=== PATIENT | male | born 1950 | race Caucasian/White ===

== ENCOUNTER 2022-09-12 04:46 | Inpatient (IN) | payer MEDICARE, OTHER ==
[~2022-09-12] VITALS: Ht 180.3 cm; Wt 118.0 kg
[2022-09-12] VITALS (38 sets, daily range): BP systolic 98–155; BP diastolic 54–76; O2SAT 93–96
[2022-09-12] MEDS ORDERED: NS 1,000 ML IV ONE ×3 (05:00→05:20)
[2022-09-12 05:12] LABS: BASO % 0.2 % (0.0-1.0); EOS % 0.1 % (0.0-3.0); HEMATOCRIT 31.3 % (42.0-52.0); HEMOGLOBIN 9.9 g/dl (13.5-17.5); LYMPH # 0.6 10^3/uL (1.5-5.0); LYMPH % 4.7 % (24.0-44.0); MEAN CORPUSCULAR HEMOGLOBIN 26.1 pg (27.0-33.0); MEAN CORPUSCULAR HGB CONC 31.6 g/dl (32.0-36.5); MEAN CORPUSCULAR VOLUME 82.6 fl (80.0-96.0); MONO # 1.2 10^3/uL (0.0-0.8); MONO % 9.2 % (2.0-8.0); NEUTROPHILS # 10.8 10^3/uL (1.5-8.5); PLATELET COUNT, AUTOMATED 177 10^3/uL (150-450); RED BLOOD COUNT 3.79 10^6/uL (4.30-6.10); WHITE BLOOD COUNT 12.7 10^3/uL (4.0-10.0)
[2022-09-12] MEDS ORDERED: NOREPINEPHRINE 4MG IN D5 250ML 4 MG in IV 1 EA IV SCH ×4 (05:20→08:40)
[2022-09-12 05:33] LABS: INR 1.07; PROTHROMBIN TIME 14.1 SECONDS (12.5-14.5)
[2022-09-12 05:34] LABS: PARTIAL THROMBOPLASTIN TIME 38.4 SECONDS (24.8-34.2)
[2022-09-12 05:37] LABS: ETHYL ALCOHOL (ETHANOL) 0.008 % (0.000-0.010)
[2022-09-12 05:39] LABS: BLOOD UREA NITROGEN 62 MG/DL (9-23); CARBON DIOXIDE LEVEL 24 MMOL/L (20-31); CHLORIDE LEVEL 98 MMOL/L (98-107); CK-MB VALUE MASS < 1.0 NG/ML (<3.6); CPK CREATINE PHOSPHOKINASE 23 U/L (46-171); CREATININE FOR GFR 2.98 MG/DL (0.70-1.30); GLOMERULAR FILTRATION RATE 22.1 (>42); GLUCOSE, FASTING 126 MG/DL (74-106); MB/CK RELATIVE INDEX 4.34 (< OR =4); POTASSIUM SERUM 4.7 MMOL/L (3.5-5.1); SODIUM LEVEL 132 MMOL/L (136-145)
[2022-09-12 05:41] LABS: THYROID STIMULATING HORMONE 2.152 uIU/ML (0.55-4.78)
[2022-09-12] MEDS ORDERED: cefTRIAXone SOD 2 GM in D5W MINI-BAG PLUS 50 ML IV ONE (06:25)
[2022-09-12] MEDS ORDERED: AZITHROMYCIN INJ 500 MG, VIAL MATE ADAPTER 1 EACH in NS 250 ML IV ONE (06:25)
[2022-09-12 07:30] LABS: CK-MB VALUE MASS < 1.0 NG/ML (<3.6)
[2022-09-12 07:34] LABS: CPK CREATINE PHOSPHOKINASE 29 U/L (46-171); MB/CK RELATIVE INDEX 3.44 (< OR =4)
[2022-09-12] MEDS ORDERED: GLUCAGON INJ 1MG VIAL SC PRN (08:45)
[2022-09-12] MEDS ORDERED: GLUCOSE 4GM CHEW TABLET PO PRN (08:45)
[2022-09-12] MEDS ORDERED: DEXTROSE 50% 50ML SYRINGE IV PRN (08:45)
[2022-09-12] MEDS ORDERED: FAMOTIDINE 20 MG TAB PO SCH (09:00)
[2022-09-12] MEDS ORDERED: PANTOPRAZOLE 40MG TAB (PROTONIX) PO SCH (09:00)
[2022-09-12] MEDS: IPRATROPIUM 0.5MG/ALBUTEROL 2.5MG INH SOL UD 3ML (DUONEB) NEB SCH ×4 (09:07→19:12)
[2022-09-12 09:10] LABS: ABG HCO3 18.5 MMOL/L (22.0-26.0); ABG O2 SATURATION 97.7 % (95.0-99.0); ABG PARTIAL PRESSURE CO2 33.1 mmHg (35.0-45.0); ABG PARTIAL PRESSURE O2 115.9 mmHg (75.0-100.0); ABG STANDARD HCO3 19.5 MMOL/L. (22.0-26.0); ABG TOTAL CO2 19.6 MMOL/L (23.0-31.0); ABG pH (ARTERIAL) 7.366 UNITS (7.350-7.450)
[2022-09-12] MEDS: NS 1,000 ML IV SCH ×2 (09:10→16:34)
[2022-09-12] MEDS ORDERED: ATOR80TA59 PO (09:46)
[2022-09-12] MEDS ORDERED: DULO1CAP5 PO (09:46)
[2022-09-12] MEDS ORDERED: OMEP-173 PO (09:46)
[2022-09-12] MEDS ORDERED: CARV6.25 PO (09:46)
[2022-09-12] MEDS ORDERED: LISI10TA24 PO (09:46)
[2022-09-12] MEDS ORDERED: CLOP75TA2 PO (09:46)
[2022-09-12] MEDS ORDERED: TIZA10TA PO (09:46)
[2022-09-12] MEDS ORDERED: B-12100010 PO (09:46)
[2022-09-12] MEDS ORDERED: VITA100093 PO (09:46)
[2022-09-12] MEDS ORDERED: BASA100I SC (09:46)
[2022-09-12] MEDS ORDERED: MAGN400T2 PO (09:46)
[2022-09-12] MEDS ORDERED: FURO40TA2 PO (09:46)
[2022-09-12] MEDS ORDERED: EZET10TA21 PO (09:46)
[2022-09-12] MEDS ORDERED: GABA-282 PO (09:46)
[2022-09-12] MEDS ORDERED: TAMS1CAP17 PO (09:46)
[2022-09-12] MEDS ORDERED: METF500T13 PO (09:46)
[2022-09-12] MEDS ORDERED: ALLO100T PO (09:46)
[2022-09-12] MEDS ORDERED: FINA5TAB2 PO (09:46)
[2022-09-12] MEDS ORDERED: HOME MED LIST COMPLETE! XX SCH (09:50)
[2022-09-12] MEDS ORDERED: methylPREDNISolone 40MG 1ML VIAL IV ONE (11:00)
[2022-09-12] MEDS ORDERED: INSULIN LISPRO (NovoLOG) PER UNIT SC SCH (12:00)
[2022-09-12] MEDS: CLOPIDOGREL 75 MG TAB PO SCH (12:07)
[2022-09-12] MEDS: FINASTERIDE 5MG TAB PO SCH (12:07)
[2022-09-12] MEDS: NOREPINEPHRINE 4MG IN D5 250ML 4 MG in IV 1 EA IV SCH ×4 (12:10→19:00)
[2022-09-12 13:32] LABS: ALBUMIN 2.8 G/DL (3.2-5.2); BILIRUBIN,DIRECT 0.4 MG/DL (<0.4); BILIRUBIN,TOTAL 0.8 MG/DL (0.3-1.2); TOTAL PROTEIN 5.5 G/DL (5.7-8.2)
[2022-09-12] MEDS ORDERED: HEPARIN SOD (PORCINE) 5000UNITS/ML 1ML VIAL/SYRINGE SC SCH (14:00)
[2022-09-12] MEDS: HEPARIN SOD (PORCINE) 5000UNITS/ML 1ML VIAL/SYRINGE SC SCH ×2 (16:33→22:20)
[2022-09-12] MEDS: INSULIN LISPRO (NovoLOG) PER UNIT SC SCH ×2 (17:40→20:40)
[2022-09-12] MEDS: ATORVASTATIN 20 MG TAB PO SCH (20:40)
[2022-09-12] MEDS: TAMSULOSIN 0.4 MG CAP PO SCH (20:40)
[2022-09-12] MEDS: GABAPENTIN 300 MG CAP PO SCH (20:40)
[2022-09-12] MEDS: EZETIMIBE 10MG TABLET (ZETIA) PO SCH (20:40)
[2022-09-12] MEDS ORDERED: APIXABAN 2.5 MG TAB (ELIQUIS) PO SCH (21:00)
[2022-09-12] MEDS ORDERED: CALCIUM CARBONATE 500 MG CHEW U/D PO ONE (23:00)
[2022-09-13] VITALS (16 sets, daily range): BP systolic 142–178; BP diastolic 68–146; O2SAT 96–97
[2022-09-13 06:11] LABS: PERCENT SATURATION 3.2 % (19.7-50.0)
[2022-09-13] MEDS: HEPARIN SOD (PORCINE) 5000UNITS/ML 1ML VIAL/SYRINGE SC SCH (06:29)
[2022-09-13] MEDS ORDERED: HEPARIN SOD (PORCINE) 5000UNITS/ML 1ML VIAL/SYRINGE IV PRN (06:50)
[2022-09-13] MEDS ORDERED: AZITHROMYCIN INJ 500 MG, VIAL MATE ADAPTER 1 EACH in NS 250 ML IV SCH (07:00)
[2022-09-13 07:13] LABS: ALBUMIN 2.6 G/DL (3.2-5.2); BILIRUBIN,TOTAL 0.4 MG/DL (0.3-1.2); CALCIUM LEVEL 7.7 MG/DL (8.3-10.6); CREATININE FOR GFR 1.84 MG/DL (0.70-1.30); GLOMERULAR FILTRATION RATE 38.6 (>42); POTASSIUM SERUM 4.6 MMOL/L (3.5-5.1); TOTAL PROTEIN 5.4 G/DL (5.7-8.2)
[2022-09-13 07:13] LABS: HEMATOCRIT 33.9 % (42.0-52.0); HEMOGLOBIN 10.3 g/dl (13.5-17.5); MEAN CORPUSCULAR HEMOGLOBIN 25.8 pg (27.0-33.0); MEAN CORPUSCULAR HGB CONC 30.4 g/dl (32.0-36.5); MEAN CORPUSCULAR VOLUME 84.8 fl (80.0-96.0); PLATELET COUNT, AUTOMATED 173 10^3/uL (150-450); WHITE BLOOD COUNT 8.7 10^3/uL (4.0-10.0)
[2022-09-13 07:27] LABS: INR 0.98; PROTHROMBIN TIME 13.2 SECONDS (12.5-14.5)
[2022-09-13] MEDS: cefTRIAXone SOD 2 GM in D5W MINI-BAG PLUS 50 ML IV SCH (07:53)
[2022-09-13] MEDS: INSULIN LISPRO (NovoLOG) PER UNIT SC SCH ×4 (07:54→20:18)
[2022-09-13] MEDS: HEPARIN DRIP 25,000 UNITS in IV 1 EA IV SCH (08:01)
[2022-09-13] MEDS: CLOPIDOGREL 75 MG TAB PO SCH (08:02)
[2022-09-13] MEDS: FINASTERIDE 5MG TAB PO SCH (08:02)
[2022-09-13] MEDS: IPRATROPIUM 0.5MG/ALBUTEROL 2.5MG INH SOL UD 3ML (DUONEB) NEB SCH ×4 (08:19→19:15)
[2022-09-13] MEDS: DOCUSATE SODIUM 100MG CAPSULE PO SCH ×3 (09:00→20:07)
[2022-09-13] MEDS ORDERED: MIRALAX *UNIT DOSE* 17GM PACKET PO PRN (09:50)
[2022-09-13] MEDS: PANTOPRAZOLE 40MG VIAL IV SCH (12:48)
[2022-09-13] MEDS: ATORVASTATIN 20 MG TAB PO SCH (20:07)
[2022-09-13] MEDS: GABAPENTIN 300 MG CAP PO SCH (20:07)
[2022-09-13] MEDS: EZETIMIBE 10MG TABLET (ZETIA) PO SCH (20:07)
[2022-09-13] MEDS: TAMSULOSIN 0.4 MG CAP PO SCH (20:07)
[2022-09-13] MEDS ORDERED: CARVedilol 6.25 MG TAB PO SCH (21:00)
[2022-09-13] MEDS ORDERED: ONDANSETRON 4MG 2ML VIAL IV PRN (23:55)
[2022-09-14] VITALS (12 sets, daily range): BP systolic 110–188; BP diastolic 56–109
[2022-09-14] MEDS: CARVedilol 12.5 MG TAB PO SCH ×3 (00:07→13:17)
[2022-09-14] MEDS ORDERED: FUROSEMIDE 40MG/4ML VIAL IV ONE (01:00)
[2022-09-14] MEDS: HEPARIN DRIP 25,000 UNITS in IV 1 EA IV SCH (01:24)
[2022-09-14 04:08] LABS: CALCIUM LEVEL 7.5 MG/DL (8.3-10.6); CREATININE FOR GFR 1.71 MG/DL (0.70-1.30); MAGNESIUM LEVEL 1.8 MG/DL (1.8-2.4); POTASSIUM SERUM 5.1 MMOL/L (3.5-5.1)
[2022-09-14] MEDS: IPRATROPIUM 0.5MG/ALBUTEROL 2.5MG INH SOL UD 3ML (DUONEB) NEB SCH ×3 (07:07→15:07)
[2022-09-14] MEDS: CLOPIDOGREL 75 MG TAB PO SCH (08:46)
[2022-09-14] MEDS: FINASTERIDE 5MG TAB PO SCH (08:46)
[2022-09-14] MEDS: INSULIN LISPRO (NovoLOG) PER UNIT SC SCH ×2 (08:48→13:16)
[2022-09-14] MEDS: cefTRIAXone SOD 2 GM in D5W MINI-BAG PLUS 50 ML IV SCH (08:48)
[2022-09-14] MEDS: DOCUSATE SODIUM 100MG CAPSULE PO SCH (08:51)
[2022-09-14] MEDS ORDERED: AZITHROMYCIN 250MG TABLET PO SCH (09:00)
[2022-09-14] MEDS: PANTOPRAZOLE 40MG VIAL IV SCH (13:16)
[2022-09-16 15:08] LABS: BODY FLUID CULTURE Not indicated. (.); LEGIONELLA ANTIGEN URINE Positive (Negative); ORGANISM ID Not indicated. (.); SPECIMEN SOURCE Urine (.); URINE STREP PNEUMONIAE ANTIGEN Negative (Negative)
== END 2022-09-14 16:36 | disposition short-term general hospital (02) | DRG 871 ==
LOC: M ED 04:46 → EDBD 04:46 → M ED INP 08:36 → ENRESERV 08:48 → M ICU 09:43
PROVIDERS: ADMIT Internal Medicine; ATTEND Family Medicine
DX: A41.9 Sepsis, unspecified organism (principal); R65.21 Severe sepsis with septic shock; I21.4 Non-ST elevation (NSTEMI) myocardial infarction; J69.0 Pneumonitis due to inhalation of food and vomit; J96.01 Acute respiratory failure with hypoxia; N17.9 Acute kidney failure, unspecified; I50.42 Chronic combined systolic (congestive) and diastolic (congestive) heart failure; E87.1 Hypo-osmolality and hyponatremia; I13.0 Hypertensive heart and chronic kidney disease with heart failure and stage 1 through stage 4 chronic kidney disease, or unspecified chronic kidney disease; E11.22 Type 2 diabetes mellitus with diabetic chronic kidney disease; I27.20 Pulmonary hypertension, unspecified; N18.9 Chronic kidney disease, unspecified; D64.9 Anemia, unspecified; I48.91 Unspecified atrial fibrillation; E78.5 Hyperlipidemia, unspecified; I25.10 Atherosclerotic heart disease of native coronary artery without angina pectoris; Z95.0 Presence of cardiac pacemaker; R55 Syncope and collapse; Z95.5 Presence of coronary angioplasty implant and graft; K80.20 Calculus of gallbladder without cholecystitis without obstruction; E86.9 Volume depletion, unspecified; I35.0 Nonrheumatic aortic (valve) stenosis; Z79.899 Other long term (current) drug therapy; Z79.4 Long term (current) use of insulin